=== PATIENT | male | born 1945 | race African-American/Black ===

== ENCOUNTER 2022-03-22 16:20 | Inpatient (IN) | payer MEDICARE, OTHER ==
[~2022-03-22] VITALS: Ht 177.8 cm; Wt 70.3 kg
[2022-03-22 18:38] LABS: BASOPHILS % 0.6 % (0.0-1.0); EOSINOPHILS % 0.6 % (0.0-6.0); HEMATOCRIT 33.6 % (38.2-49.6); HEMOGLOBIN 10.7 g/dL (14.0-18.0); LYMPHOCYTES # (AUTO) 1.8 (1.0-3.2); LYMPHOCYTES % 27.2 % (18.0-39.1); MEAN CORPUSCULAR HGB CONC 31.8 g/dL (31-35); MEAN CORPUSCULAR VOLUME 94.1 fL (81-99); MONOCYTES # (AUTO) 0.4 (0.2-0.8); MONOCYTES % 5.8 % (4.4-11.3); NEUTROPHILS # (AUTO) 4.3 (2.1-6.9); NEUTROPHILS % 65.2 % (38.7-80.0); PLATELET COUNT 175 x10e3/uL (140-360); RED BLOOD COUNT 3.57 x10e6/uL (4.3-5.7); RED CELL DISTRIBUTION WIDTH 12.2 % (11.7-14.4)
[2022-03-22] MEDS ORDERED: Vancomycin IV 1 GM in SODIUM CHLORIDE 0.9% 250ML 250 ML IV STA (18:41)
[2022-03-22 18:48] LABS: INR 0.98; PROTHROMBIN TIME 13.9 seconds (11.9-14.5)
[2022-03-22 18:57] LABS: ANION GAP 18.7 mmol/L (8-16); CALCIUM 10.2 mg/dL (8.4-10.2); CREATININE, SERUM 2.72 mg/dL (0.72-1.25); POTASSIUM 5.7 mmol/L (3.5-5.1)
[2022-03-22] MEDS ORDERED: HEPARIN SOD (PORCINE) 1000 UNIT/ML SDV IV ONE (19:00)
[2022-03-22] MEDS ORDERED: TRAMADOL HCL 50 MG TAB PO PRN (19:00)
[2022-03-22] MEDS: SODIUM CHLORIDE 0.9% 1000ML 1,000 ML IV SCH (20:07)
[2022-03-22] MEDS: HEPARIN 25,000 UNIT 1,300 UNIT in DEXTROSE 5% 250ML 250 ML IV SCH (20:13)
[2022-03-22] MEDS ORDERED: HEPARIN 25,000 UNIT DRIP IV ONE (20:14)
[2022-03-22] MEDS ORDERED: SOD POLYSTYRENE SULFONATE SUSP 15 GM/60 ML BTL PR ONE (22:45)
[2022-03-23] VITALS (9 sets, daily range): BP systolic 109–132; BP diastolic 41–54
[2022-03-23] MEDS ORDERED: DEXTROSE 50% SYRINGE 50 ML IV PRN ×2 (01:15→02:00)
[2022-03-23] MEDS: SODIUM CHLORIDE 0.9% 1000ML 1,000 ML IV SCH ×2 (06:38→15:00)
[2022-03-23] MEDS: INSULIN LISPRO 100 UNIT/1 ML 3ML VIAL SQ SCH ×4 (07:30→21:00)
[2022-03-23] MEDS ORDERED: INSULIN LISPRO 100 UNIT/1 ML 3ML VIAL SQ SCH (07:30)
[2022-03-23 08:11] LABS: BASOPHILS % 0.6 % (0.0-1.0); EOSINOPHILS # (AUTO) 0.1 (0.0-0.4); EOSINOPHILS % 1.5 % (0.0-6.0); HEMATOCRIT 27.8 % (38.2-49.6); HEMOGLOBIN 9.1 g/dL (14.0-18.0); LYMPHOCYTES # (AUTO) 1.6 (1.0-3.2); LYMPHOCYTES % 31.1 % (18.0-39.1); MEAN CORPUSCULAR HGB CONC 32.7 g/dL (31-35); MEAN CORPUSCULAR VOLUME 91.7 fL (81-99); MONOCYTES # (AUTO) 0.4 (0.2-0.8); MONOCYTES % 6.8 % (4.4-11.3); NEUTROPHILS # (AUTO) 3.1 (2.1-6.9); NEUTROPHILS % 59.4 % (38.7-80.0); PLATELET COUNT 139 x10e3/uL (140-360); RED BLOOD COUNT 3.03 x10e6/uL (4.3-5.7); RED CELL DISTRIBUTION WIDTH 12.2 % (11.7-14.4)
[2022-03-23 09:09] LABS: ANION GAP 15.3 mmol/L (8-16); CALCIUM 8.9 mg/dL (8.4-10.2); CREATININE, SERUM 1.78 mg/dL (0.72-1.25); POTASSIUM 5.3 mmol/L (3.5-5.1)
[2022-03-23 10:09] LABS: CHOL/HDL RATIO 5.1 (3.9-4.7)
[2022-03-23 10:29] LABS: THYROID STIMULATING HORMONE 1.815 uIU/mL (0.350-4.940)
[2022-03-23] MEDS ORDERED: INSULIN REGULAR, HUMAN 100 UNIT/1 ML IV ONE (15:30)
[2022-03-23] MEDS ORDERED: DEXTROSE 50% SYRINGE 50 ML IV ONE (15:30)
[2022-03-23] MEDS: SODIUM BICARBONATE 8.4% 150 ML in DEXTROSE 5% 1,000 ML IV SCH (16:56)
[2022-03-23] MEDS ORDERED: Vancomycin IV 1 GM in SODIUM CHLORIDE 0.9% 250ML 250 ML IV SCH (21:00)
[2022-03-23] MEDS: Vancomycin IV 1 GM in SODIUM CHLORIDE 0.9% 250ML 250 ML IV SCH (21:17)
[2022-03-24] VITALS (8 sets, daily range): BP systolic 109–145; BP diastolic 47–63
[2022-03-24] MEDS: ASPIRIN 81 MG CHEW TAB PO SCH ×2 (00:51→08:28)
[2022-03-24] MEDS: HEPARIN 25,000 UNIT 1,300 UNIT in DEXTROSE 5% 250ML 250 ML IV SCH (00:54)
[2022-03-24] MEDS: SODIUM CHLORIDE 0.9% 1000ML 1,000 ML IV SCH ×2 (01:00→11:00)
[2022-03-24 07:22] LABS: BASOPHILS % 0.9 % (0.0-1.0); EOSINOPHILS # (AUTO) 0.1 (0.0-0.4); EOSINOPHILS % 1.8 % (0.0-6.0); HEMATOCRIT 27.2 % (38.2-49.6); HEMOGLOBIN 8.6 g/dL (14.0-18.0); LYMPHOCYTES # (AUTO) 1.9 (1.0-3.2); LYMPHOCYTES % 43.7 % (18.0-39.1); MEAN CORPUSCULAR HGB CONC 31.6 g/dL (31-35); MEAN CORPUSCULAR VOLUME 94.8 fL (81-99); MONOCYTES # (AUTO) 0.3 (0.2-0.8); MONOCYTES % 7.8 % (4.4-11.3); NEUTROPHILS % 45.3 % (38.7-80.0); PLATELET COUNT 139 x10e3/uL (140-360); RED BLOOD COUNT 2.87 x10e6/uL (4.3-5.7); RED CELL DISTRIBUTION WIDTH 12.1 % (11.7-14.4)
[2022-03-24] MEDS: INSULIN LISPRO 100 UNIT/1 ML 3ML VIAL SQ SCH ×4 (07:30→20:16)
[2022-03-24] MEDS ORDERED: ATORVASTATIN 20 MG TAB ONE (07:44)
[2022-03-24] MEDS: SODIUM BICARBONATE 8.4% 150 ML in DEXTROSE 5% 1,000 ML IV SCH (08:27)
[2022-03-24] MEDS: ATORVASTATIN 40 MG TAB PO SCH (08:29)
[2022-03-24] MEDS: MUPIROCIN 2% OINT 22 GM TUBE TOP SCH (09:00)
[2022-03-24 19:14] LABS: ANION GAP 12.9 mmol/L (8-16); CALCIUM 8.6 mg/dL (8.4-10.2); CREATININE, SERUM 1.08 mg/dL (0.72-1.25)
[2022-03-24 19:19] LABS: POTASSIUM 3.9 mmol/L (3.5-5.1)
[2022-03-24] MEDS: HYDROCODONE/APAP 5MG-325MG TAB PO PRN (19:30)
[2022-03-24] MEDS: Vancomycin IV 1 GM in SODIUM CHLORIDE 0.9% 250ML 250 ML IV SCH (21:15)
[2022-03-25] VITALS (8 sets, daily range): BP systolic 122–151; BP diastolic 48–82
[2022-03-25] MEDS: HYDROCODONE/APAP 5MG-325MG TAB PO PRN ×2 (00:50→12:31)
[2022-03-25 06:19] LABS: EOSINOPHILS # (AUTO) 0.1 (0.0-0.4); EOSINOPHILS % 2.3 % (0.0-6.0); HEMATOCRIT 25.2 % (38.2-49.6); LYMPHOCYTES # (AUTO) 1.7 (1.0-3.2); LYMPHOCYTES % 43.1 % (18.0-39.1); MEAN CORPUSCULAR HEMOGLOBIN 29.7 pg (28-32); MEAN CORPUSCULAR HGB CONC 31.7 g/dL (31-35); MEAN CORPUSCULAR VOLUME 93.7 fL (81-99); MONOCYTES # (AUTO) 0.3 (0.2-0.8); MONOCYTES % 7.6 % (4.4-11.3); NEUTROPHILS # (AUTO) 1.8 (2.1-6.9); NEUTROPHILS % 45.7 % (38.7-80.0); PLATELET COUNT 128 x10e3/uL (140-360); RED BLOOD COUNT 2.69 x10e6/uL (4.3-5.7); RED CELL DISTRIBUTION WIDTH 11.8 % (11.7-14.4)
[2022-03-25 06:40] LABS: CALCIUM 8.3 mg/dL (8.4-10.2); CREATININE, SERUM 0.9 mg/dL (0.72-1.25)
[2022-03-25] MEDS: INSULIN LISPRO 100 UNIT/1 ML 3ML VIAL SQ SCH ×4 (07:30→21:20)
[2022-03-25] MEDS: HEPARIN 25,000 UNIT 1,300 UNIT in DEXTROSE 5% 250ML 250 ML IV SCH (08:00)
[2022-03-25] MEDS: ASPIRIN 81 MG CHEW TAB PO SCH (08:30)
[2022-03-25] MEDS: ATORVASTATIN 40 MG TAB PO SCH (08:30)
[2022-03-25] MEDS: MUPIROCIN 2% OINT 22 GM TUBE TOP SCH (08:31)
[2022-03-25] MEDS: SODIUM BICARBONATE 650 MG TAB PO SCH (16:25)
[2022-03-25] MEDS: Vancomycin IV 1 GM in SODIUM CHLORIDE 0.9% 250ML 250 ML IV SCH (21:20)
[2022-03-26] VITALS (7 sets, daily range): BP systolic 115–139; BP diastolic 45–59
[2022-03-26 05:32] LABS: BASOPHILS % 0.7 % (0.0-1.0); EOSINOPHILS # (AUTO) 0.2 (0.0-0.4); EOSINOPHILS % 3.3 % (0.0-6.0); HEMATOCRIT 23.5 % (38.2-49.6); HEMOGLOBIN 7.7 g/dL (14.0-18.0); LYMPHOCYTES # (AUTO) 1.7 (1.0-3.2); LYMPHOCYTES % 38.8 % (18.0-39.1); MEAN CORPUSCULAR HGB CONC 32.8 g/dL (31-35); MEAN CORPUSCULAR VOLUME 91.4 fL (81-99); MONOCYTES # (AUTO) 0.4 (0.2-0.8); MONOCYTES % 8.2 % (4.4-11.3); NEUTROPHILS # (AUTO) 2.2 (2.1-6.9); NEUTROPHILS % 48.8 % (38.7-80.0); PLATELET COUNT 122 x10e3/uL (140-360); RED BLOOD COUNT 2.57 x10e6/uL (4.3-5.7); RED CELL DISTRIBUTION WIDTH 11.9 % (11.7-14.4)
[2022-03-26] MEDS: HYDROCODONE/APAP 5MG-325MG TAB PO PRN (05:46)
[2022-03-26 06:04] LABS: ANION GAP 10.9 mmol/L (8-16); CALCIUM 8.7 mg/dL (8.4-10.2); CREATININE, SERUM 0.89 mg/dL (0.72-1.25); POTASSIUM 3.9 mmol/L (3.5-5.1)
[2022-03-26] MEDS: INSULIN LISPRO 100 UNIT/1 ML 3ML VIAL SQ SCH ×4 (07:30→21:00)
[2022-03-26] MEDS: ATORVASTATIN 40 MG TAB PO SCH (08:41)
[2022-03-26] MEDS: ASPIRIN 81 MG CHEW TAB PO SCH (08:41)
[2022-03-26] MEDS: SODIUM BICARBONATE 650 MG TAB PO SCH ×2 (08:41→16:16)
[2022-03-26] MEDS: MUPIROCIN 2% OINT 22 GM TUBE TOP SCH (09:00)
[2022-03-26] MEDS: SODIUM CHLORIDE 0.45% 1,000 ML IV SCH ×2 (10:00→21:31)
[2022-03-26] MEDS: ACETYLCYSTEINE 20% INHAL SOLN 30 ML VIAL PO SCH ×2 (10:30→21:31)
[2022-03-26] MEDS ORDERED: SODIUM CHLORIDE 0.9% 100 ML ONE (11:10)
[2022-03-26] MEDS ORDERED: IOPAMIDOL 370 MG/ML 100 ML INFUS..BTL INJ ONE (11:10)
[2022-03-26] MEDS ORDERED: ENOXAPARIN SOD INJ 40 MG/0.4 ML SYR SC SCH (17:00)
[2022-03-26] MEDS ORDERED: SODIUM CHLORIDE 0.9% 1000ML 1,000 ML IV SCH (17:45)
[2022-03-26] MEDS: Vancomycin IV 1 GM in SODIUM CHLORIDE 0.9% 250ML 250 ML IV SCH (21:31)
[2022-03-26] MEDS: COLLAGENASE 5 GM TUBE TOP SCH (21:36)
[2022-03-27] VITALS (9 sets, daily range): BP systolic 107–133; BP diastolic 42–78
[2022-03-27] MEDS: SODIUM CHLORIDE 0.45% 1,000 ML IV SCH (05:55)
[2022-03-27] MEDS: ACETYLCYSTEINE 20% INHAL SOLN 30 ML VIAL PO SCH ×2 (07:00→19:00)
[2022-03-27 07:02] LABS: BASOPHILS % 0.6 % (0.0-1.0); EOSINOPHILS # (AUTO) 0.2 (0.0-0.4); EOSINOPHILS % 3.4 % (0.0-6.0); HEMATOCRIT 23.5 % (38.2-49.6); HEMOGLOBIN 7.6 g/dL (14.0-18.0); LYMPHOCYTES # (AUTO) 1.4 (1.0-3.2); LYMPHOCYTES % 29.8 % (18.0-39.1); MEAN CORPUSCULAR HEMOGLOBIN 29.6 pg (28-32); MEAN CORPUSCULAR HGB CONC 32.3 g/dL (31-35); MEAN CORPUSCULAR VOLUME 91.4 fL (81-99); MONOCYTES # (AUTO) 0.4 (0.2-0.8); MONOCYTES % 7.8 % (4.4-11.3); NEUTROPHILS # (AUTO) 2.8 (2.1-6.9); NEUTROPHILS % 58.2 % (38.7-80.0); PLATELET COUNT 125 x10e3/uL (140-360); RED BLOOD COUNT 2.57 x10e6/uL (4.3-5.7); RED CELL DISTRIBUTION WIDTH 11.7 % (11.7-14.4)
[2022-03-27 07:16] LABS: ANION GAP 10.6 mmol/L (8-16); CALCIUM 8.8 mg/dL (8.4-10.2); CREATININE, SERUM 0.83 mg/dL (0.72-1.25); POTASSIUM 3.6 mmol/L (3.5-5.1)
[2022-03-27] MEDS: INSULIN LISPRO 100 UNIT/1 ML 3ML VIAL SQ SCH ×4 (07:30→21:00)
[2022-03-27 07:54] LABS: INR 0.91; PROTHROMBIN TIME 13.1 seconds (11.9-14.5)
[2022-03-27 07:55] LABS: PARTIAL THROMBOPLASTIN TIME 28.4 seconds (23.8-35.5)
[2022-03-27] MEDS: SODIUM BICARBONATE 650 MG TAB PO SCH (08:18)
[2022-03-27] MEDS: ATORVASTATIN 40 MG TAB PO SCH (08:18)
[2022-03-27] MEDS: ASPIRIN 81 MG CHEW TAB PO SCH (08:18)
[2022-03-27] MEDS: COLLAGENASE 5 GM TUBE TOP SCH (08:19)
[2022-03-27] MEDS: MUPIROCIN 2% OINT 22 GM TUBE TOP SCH (08:19)
[2022-03-27] MEDS ORDERED: FENTANYL CITRATE/PF 100MCG/2 ML INJ ONE (09:39)
[2022-03-27] MEDS ORDERED: MIDAZOLAM HCL 2 MG/2 ML VIAL ONE (09:39)
[2022-03-27] MEDS ORDERED: HEPARIN SOD (PORCINE) 1000 UNIT/ML 30ML ONE (09:39)
[2022-03-27] MEDS ORDERED: LIDOCAINE HCL 2% LOCAL 20 ML VIAL ONE (09:40)
[2022-03-27] MEDS ORDERED: HEPARIN SOD/SOD CHLORIDE 2,000 ML ONE (09:40)
[2022-03-27] MEDS ORDERED: NITROGLYCERIN/D5W 200 MCG/ML 250 ML ONE (09:41)
[2022-03-27] MEDS ORDERED: SODIUM CHLORIDE 0.9% 1000ML 1,000 ML ONE (09:41)
[2022-03-27] MEDS ORDERED: IOPAMIDOL 300MG/ML 100 ML INFUS..BTL IV ONE (09:41)
[2022-03-27] MEDS ORDERED: ASPIRIN 325 MG TAB ONE (11:25)
[2022-03-27] MEDS ORDERED: CLOPIDOGREL BISULFATE 75 MG TAB ONE (11:25)
[2022-03-27] MEDS: SODIUM CHLORIDE 0.9% 1000ML 1,000 ML IV SCH (12:00)
[2022-03-27] MEDS ORDERED: HYDROCODONE/APAP 5MG-325MG TAB ONE (12:53)
[2022-03-27] MEDS ORDERED: FAMOTIDINE 20 MG/2 ML VIAL IV ONE (13:19)
[2022-03-27] MEDS: HYDROCODONE/APAP 5MG-325MG TAB PO PRN (16:45)
[2022-03-27] MEDS: Vancomycin IV 1 GM in SODIUM CHLORIDE 0.9% 250ML 250 ML IV SCH (21:00)
[2022-03-28] VITALS (7 sets, daily range): BP systolic 114–149; BP diastolic 42–62
[2022-03-28] MEDS: SODIUM CHLORIDE 0.9% 1000ML 1,000 ML IV SCH ×3 (00:15→18:00)
[2022-03-28] MEDS: ACETYLCYSTEINE 20% INHAL SOLN 30 ML VIAL PO SCH (07:00)
[2022-03-28 07:23] LABS: BASOPHILS % 0.6 % (0.0-1.0); EOSINOPHILS # (AUTO) 0.2 (0.0-0.4); EOSINOPHILS % 3.2 % (0.0-6.0); HEMATOCRIT 22.3 % (38.2-49.6); HEMOGLOBIN 7.2 g/dL (14.0-18.0); LYMPHOCYTES # (AUTO) 1.2 (1.0-3.2); LYMPHOCYTES % 23.2 % (18.0-39.1); MEAN CORPUSCULAR HEMOGLOBIN 29.8 pg (28-32); MEAN CORPUSCULAR HGB CONC 32.3 g/dL (31-35); MEAN CORPUSCULAR VOLUME 92.1 fL (81-99); MONOCYTES # (AUTO) 0.4 (0.2-0.8); MONOCYTES % 7.4 % (4.4-11.3); NEUTROPHILS # (AUTO) 3.4 (2.1-6.9); NEUTROPHILS % 65.4 % (38.7-80.0); PLATELET COUNT 112 x10e3/uL (140-360); RED BLOOD COUNT 2.42 x10e6/uL (4.3-5.7); RED CELL DISTRIBUTION WIDTH 11.9 % (11.7-14.4)
[2022-03-28] MEDS: INSULIN LISPRO 100 UNIT/1 ML 3ML VIAL SQ SCH ×4 (07:30→21:00)
[2022-03-28 07:55] LABS: ANION GAP 11.4 mmol/L (8-16); CALCIUM 8.2 mg/dL (8.4-10.2); CREATININE, SERUM 0.8 mg/dL (0.72-1.25); POTASSIUM 3.4 mmol/L (3.5-5.1)
[2022-03-28] MEDS: COLLAGENASE 5 GM TUBE TOP SCH (09:00)
[2022-03-28] MEDS: MUPIROCIN 2% OINT 22 GM TUBE TOP SCH (09:00)
[2022-03-28] MEDS: ASPIRIN 81 MG CHEW TAB PO SCH (09:02)
[2022-03-28] MEDS: CLOPIDOGREL BISULFATE 75 MG TAB PO SCH (09:02)
[2022-03-28] MEDS: ATORVASTATIN 40 MG TAB PO SCH (09:02)
[2022-03-28] MEDS ORDERED: ACETAMINOPHEN 325 MG TAB PO STA (09:22)
[2022-03-28] MEDS ORDERED: SODIUM CHLORIDE 0.9% 250ML 250 ML IV ONE (09:30)
[2022-03-28] MEDS: HYDROCODONE/APAP 5MG-325MG TAB PO PRN (14:13)
[2022-03-28] MEDS: Vancomycin IV 1 GM in SODIUM CHLORIDE 0.9% 250ML 250 ML IV SCH (20:00)
[2022-03-29] VITALS (9 sets, daily range): BP systolic 109–149; BP diastolic 52–87
[2022-03-29] MEDS: Vancomycin IV 1 GM in SODIUM CHLORIDE 0.9% 250ML 250 ML IV SCH ×2 (00:20→20:00)
[2022-03-29] MEDS: SODIUM CHLORIDE 0.9% 1000ML 1,000 ML IV SCH (04:00)
[2022-03-29 06:44] LABS: BASOPHILS % 0.4 % (0.0-1.0); EOSINOPHILS # (AUTO) 0.1 (0.0-0.4); EOSINOPHILS % 2.1 % (0.0-6.0); HEMATOCRIT 21.1 % (38.2-49.6); LYMPHOCYTES # (AUTO) 1.2 (1.0-3.2); LYMPHOCYTES % 17.4 % (18.0-39.1); MEAN CORPUSCULAR HEMOGLOBIN 29.7 pg (28-32); MEAN CORPUSCULAR HGB CONC 32.7 g/dL (31-35); MEAN CORPUSCULAR VOLUME 90.9 fL (81-99); MONOCYTES # (AUTO) 0.4 (0.2-0.8); MONOCYTES % 6.6 % (4.4-11.3); NEUTROPHILS # (AUTO) 4.9 (2.1-6.9); NEUTROPHILS % 73.2 % (38.7-80.0); PLATELET COUNT 127 x10e3/uL (140-360); RED BLOOD COUNT 2.32 x10e6/uL (4.3-5.7); RED CELL DISTRIBUTION WIDTH 12.1 % (11.7-14.4)
[2022-03-29] MEDS: ACETYLCYSTEINE 20% INHAL SOLN 30 ML VIAL PO SCH ×2 (07:00→19:00)
[2022-03-29 07:12] LABS: ANION GAP 10.2 mmol/L (8-16); CALCIUM 8.7 mg/dL (8.4-10.2); CREATININE, SERUM 0.74 mg/dL (0.72-1.25); HEMOGLOBIN 6.9 g/dL (14.0-18.0); POTASSIUM 3.2 mmol/L (3.5-5.1)
[2022-03-29] MEDS: INSULIN LISPRO 100 UNIT/1 ML 3ML VIAL SQ SCH ×4 (07:30→21:00)
[2022-03-29] MEDS: ASPIRIN 81 MG CHEW TAB PO SCH (08:41)
[2022-03-29] MEDS: ATORVASTATIN 40 MG TAB PO SCH (08:42)
[2022-03-29] MEDS: CLOPIDOGREL BISULFATE 75 MG TAB PO SCH (08:42)
[2022-03-29] MEDS: MUPIROCIN 2% OINT 22 GM TUBE TOP SCH (08:43)
[2022-03-29] MEDS ORDERED: TRAMADOL HCL 50 MG TAB PO PRN (08:45)
[2022-03-29] MEDS ORDERED: POTASSIUM CHLORIDE 10MEQ EA PO ONE (09:15)
[2022-03-29] MEDS ORDERED: SODIUM CHLORIDE 0.9% 250ML 250 ML ONE (09:37)
[2022-03-29] MEDS: FUROSEMIDE INJ 10 MG/ML 2 ML VIAL IV PRN ×2 (12:42→15:51)
[2022-03-29] MEDS: COLLAGENASE 5 GM TUBE TOP SCH (21:00)
[2022-03-30] VITALS (7 sets, daily range): BP systolic 119–156; BP diastolic 56–76
[2022-03-30] MEDS: HYDROCODONE/APAP 5MG-325MG TAB PO PRN ×3 (00:20→13:12)
[2022-03-30] MEDS: Vancomycin IV 1 GM in SODIUM CHLORIDE 0.9% 250ML 250 ML IV SCH ×2 (00:29→20:42)
[2022-03-30] MEDS: ACETYLCYSTEINE 20% INHAL SOLN 30 ML VIAL PO SCH ×2 (07:00→19:00)
[2022-03-30] MEDS: INSULIN LISPRO 100 UNIT/1 ML 3ML VIAL SQ SCH ×4 (07:30→20:49)
[2022-03-30] MEDS: ATORVASTATIN 40 MG TAB PO SCH (08:36)
[2022-03-30] MEDS: CLOPIDOGREL BISULFATE 75 MG TAB PO SCH (08:37)
[2022-03-30] MEDS: ASPIRIN 81 MG CHEW TAB PO SCH (08:37)
[2022-03-30] MEDS: [UNRECOGNIZED DRUG - OTHER] PO SCH (08:38)
[2022-03-30] MEDS: MUPIROCIN 2% OINT 22 GM TUBE TOP SCH (09:00)
[2022-03-30 09:24] LABS: BASOPHILS % 0.4 % (0.0-1.0); EOSINOPHILS # (AUTO) 0.2 (0.0-0.4); EOSINOPHILS % 2.7 % (0.0-6.0); HEMATOCRIT 29.4 % (38.2-49.6); HEMOGLOBIN 9.7 g/dL (14.0-18.0); LYMPHOCYTES # (AUTO) 1.9 (1.0-3.2); LYMPHOCYTES % 21.5 % (18.0-39.1); MEAN CORPUSCULAR HEMOGLOBIN 30.2 pg (28-32); MEAN CORPUSCULAR VOLUME 91.6 fL (81-99); MONOCYTES # (AUTO) 0.7 (0.2-0.8); MONOCYTES % 7.8 % (4.4-11.3); NEUTROPHILS # (AUTO) 6.1 (2.1-6.9); NEUTROPHILS % 67.4 % (38.7-80.0); PLATELET COUNT 134 x10e3/uL (140-360); RED BLOOD COUNT 3.21 x10e6/uL (4.3-5.7); RED CELL DISTRIBUTION WIDTH 13.5 % (11.7-14.4)
[2022-03-30] MEDS: COLLAGENASE 5 GM TUBE TOP SCH (20:43)
[2022-03-31] VITALS (7 sets, daily range): BP systolic 133–156; BP diastolic 48–80
[2022-03-31] MEDS: HYDROCODONE/APAP 5MG-325MG TAB PO PRN ×2 (02:29→20:58)
[2022-03-31] MEDS ORDERED: ACETAMINOPHEN 325 MG TAB ONE (05:52)
[2022-03-31] MEDS: ACETYLCYSTEINE 20% INHAL SOLN 30 ML VIAL PO SCH ×2 (07:00→19:00)
[2022-03-31] MEDS: INSULIN LISPRO 100 UNIT/1 ML 3ML VIAL SQ SCH ×4 (07:30→21:00)
[2022-03-31] MEDS: [UNRECOGNIZED DRUG - OTHER] PO SCH (09:00)
[2022-03-31] MEDS ORDERED: ZIPRASIDONE 20 MG VIAL IM PRN (10:45)
[2022-03-31] MEDS: QUETIAPINE FUMARATE 25 MG TAB PO SCH ×2 (12:30→18:26)
[2022-03-31] MEDS: MUPIROCIN 2% OINT 22 GM TUBE TOP SCH (12:30)
[2022-03-31] MEDS: SERTRALINE HCL 100 MG TAB PO SCH (12:30)
[2022-03-31] MEDS: ASPIRIN 81 MG CHEW TAB PO SCH (12:30)
[2022-03-31] MEDS: CLOPIDOGREL BISULFATE 75 MG TAB PO SCH (12:30)
[2022-03-31] MEDS: ATORVASTATIN 40 MG TAB PO SCH ×2 (12:30→20:55)
[2022-03-31] MEDS ORDERED: SERTRALINE HCL100 MG PO (12:36)
[2022-03-31] MEDS: COLLAGENASE 5 GM TUBE TOP SCH (21:00)
[2022-03-31] MEDS: TRAZODONE HCL 50 MG TAB PO SCH (21:00)
[2022-03-31] MEDS: Vancomycin IV 1 GM in SODIUM CHLORIDE 0.9% 250ML 250 ML IV SCH (21:34)
[2022-04-01] VITALS (8 sets, daily range): BP systolic 137–146; BP diastolic 51–75
[2022-04-01] MEDS: HYDROCODONE/APAP 5MG-325MG TAB PO PRN (05:44)
[2022-04-01] MEDS: ACETYLCYSTEINE 20% INHAL SOLN 30 ML VIAL PO SCH ×2 (07:00→19:00)
[2022-04-01] MEDS: INSULIN LISPRO 100 UNIT/1 ML 3ML VIAL SQ SCH ×4 (07:30→21:38)
[2022-04-01] MEDS: QUETIAPINE FUMARATE 25 MG TAB PO SCH ×2 (10:31→17:24)
[2022-04-01] MEDS: SERTRALINE HCL 100 MG TAB PO SCH (10:31)
[2022-04-01] MEDS: ATORVASTATIN 40 MG TAB PO SCH ×2 (10:31→21:21)
[2022-04-01] MEDS: [UNRECOGNIZED DRUG - OTHER] PO SCH (10:32)
[2022-04-01] MEDS: MUPIROCIN 2% OINT 22 GM TUBE TOP SCH (10:32)
[2022-04-01] MEDS: ASPIRIN 81 MG CHEW TAB PO SCH (10:32)
[2022-04-01] MEDS: TRAZODONE HCL 50 MG TAB PO SCH (21:15)
[2022-04-01] MEDS: Vancomycin IV 1 GM in SODIUM CHLORIDE 0.9% 250ML 250 ML IV SCH (21:22)
[2022-04-01] MEDS: COLLAGENASE 5 GM TUBE TOP SCH (21:22)
[2022-04-02] VITALS (7 sets, daily range): BP systolic 122–150; BP diastolic 57–65
[2022-04-02] MEDS: HYDROCODONE/APAP 5MG-325MG TAB PO PRN ×4 (00:06→14:40)
[2022-04-02] MEDS: INSULIN LISPRO 100 UNIT/1 ML 3ML VIAL SQ SCH ×4 (07:30→21:00)
[2022-04-02] MEDS: SERTRALINE HCL 100 MG TAB PO SCH (08:25)
[2022-04-02] MEDS: QUETIAPINE FUMARATE 25 MG TAB PO SCH ×2 (08:26→17:37)
[2022-04-02] MEDS: ASPIRIN 81 MG CHEW TAB PO SCH (08:26)
[2022-04-02] MEDS: ACETYLCYSTEINE 20% INHAL SOLN 30 ML VIAL PO SCH ×2 (08:26→21:37)
[2022-04-02] MEDS: [UNRECOGNIZED DRUG - OTHER] PO SCH (08:26)
[2022-04-02] MEDS: ATORVASTATIN 40 MG TAB PO SCH (08:26)
[2022-04-02] MEDS: MUPIROCIN 2% OINT 22 GM TUBE TOP SCH (08:28)
[2022-04-02] MEDS: COLLAGENASE 5 GM TUBE TOP SCH (21:37)
[2022-04-02] MEDS: TRAZODONE HCL 50 MG TAB PO SCH (21:37)
[2022-04-03] VITALS (8 sets, daily range): BP systolic 126–172; BP diastolic 50–76
[2022-04-03] MEDS: HYDROCODONE/APAP 5MG-325MG TAB PO PRN ×4 (06:29→22:13)
[2022-04-03] MEDS: ACETYLCYSTEINE 20% INHAL SOLN 30 ML VIAL PO SCH ×2 (07:00→19:00)
[2022-04-03] MEDS: INSULIN LISPRO 100 UNIT/1 ML 3ML VIAL SQ SCH ×4 (07:30→21:00)
[2022-04-03] MEDS: MUPIROCIN 2% OINT 22 GM TUBE TOP SCH (08:00)
[2022-04-03] MEDS: QUETIAPINE FUMARATE 25 MG TAB PO SCH ×2 (09:00→16:24)
[2022-04-03] MEDS: [UNRECOGNIZED DRUG - OTHER] PO SCH (09:00)
[2022-04-03] MEDS: ASPIRIN 81 MG CHEW TAB PO SCH (09:00)
[2022-04-03] MEDS: ATORVASTATIN 40 MG TAB PO SCH (09:00)
[2022-04-03] MEDS ORDERED: MIDAZOLAM HCL 2 MG/2 ML VIAL ONE (09:53)
[2022-04-03] MEDS ORDERED: FENTANYL CITRATE/PF 100MCG/2 ML INJ ONE (09:53)
[2022-04-03] MEDS ORDERED: KETAMINE HCL INJ 50 MG/ML 10 ML VIAL ONE (09:53)
[2022-04-03] MEDS ORDERED: POVIDONE IODINE 0.05% 0.05 % ML PO ONE (10:32)
[2022-04-03] MEDS ORDERED: DEXAMETHASONE SOD PHOS INJ 4 MG/ML SDV ONE (10:32)
[2022-04-03] MEDS ORDERED: ONDANSETRON HCL INJ 2MG/ML 2ML 2 MG/ML VIAL ONE (10:32)
[2022-04-03] MEDS ORDERED: PROPOFOL IV EMULSION 10 MG/ML 20 ML VIAL ONE (10:32)
[2022-04-03] MEDS ORDERED: SEVOFLURANE INHAL SOLN 250 ML PEN BTL ONE (10:32)
[2022-04-03] MEDS ORDERED: LIDOCAINE HCL 2% LOCAL INJ 5 ML SDV VIAL INJ ONE (10:32)
[2022-04-03] MEDS ORDERED: HYDROCODONE/APAP 5MG-325MG TAB PO PRN (12:30)
[2022-04-03] MEDS: SERTRALINE HCL 100 MG TAB PO SCH (13:39)
[2022-04-03] MEDS: TRAZODONE HCL 50 MG TAB PO SCH (21:15)
[2022-04-03] MEDS: COLLAGENASE 5 GM TUBE TOP SCH (21:24)
[2022-04-04] VITALS (9 sets, daily range): BP systolic 104–141; BP diastolic 44–58
[2022-04-04] MEDS: HYDROCODONE/APAP 5MG-325MG TAB PO PRN ×5 (01:58→21:06)
[2022-04-04] MEDS: INSULIN LISPRO 100 UNIT/1 ML 3ML VIAL SQ SCH ×4 (07:30→20:51)
[2022-04-04] MEDS: ACETYLCYSTEINE 20% INHAL SOLN 30 ML VIAL PO SCH ×2 (08:55→19:00)
[2022-04-04] MEDS: SERTRALINE HCL 100 MG TAB PO SCH (08:56)
[2022-04-04] MEDS: [UNRECOGNIZED DRUG - OTHER] PO SCH (08:56)
[2022-04-04] MEDS: ASPIRIN 81 MG CHEW TAB PO SCH (08:56)
[2022-04-04] MEDS: MUPIROCIN 2% OINT 22 GM TUBE TOP SCH (08:56)
[2022-04-04] MEDS: ATORVASTATIN 40 MG TAB PO SCH (08:56)
[2022-04-04] MEDS: QUETIAPINE FUMARATE 25 MG TAB PO SCH ×2 (08:56→17:11)
[2022-04-04 10:16] LABS: BASOPHILS % 0.4 % (0.0-1.0); EOSINOPHILS % 0.1 % (0.0-6.0); HEMOGLOBIN 8.7 g/dL (14.0-18.0); LYMPHOCYTES # (AUTO) 1.2 (1.0-3.2); LYMPHOCYTES % 15.8 % (18.0-39.1); MEAN CORPUSCULAR HEMOGLOBIN 30.2 pg (28-32); MEAN CORPUSCULAR HGB CONC 31.1 g/dL (31-35); MEAN CORPUSCULAR VOLUME 97.2 fL (81-99); MONOCYTES # (AUTO) 0.7 (0.2-0.8); MONOCYTES % 9.7 % (4.4-11.3); NEUTROPHILS # (AUTO) 5.5 (2.1-6.9); NEUTROPHILS % 72.7 % (38.7-80.0); PLATELET COUNT 164 x10e3/uL (140-360); RED BLOOD COUNT 2.88 x10e6/uL (4.3-5.7); RED CELL DISTRIBUTION WIDTH 13.8 % (11.7-14.4)
[2022-04-04 10:34] LABS: ANION GAP 9.3 mmol/L (8-16); CALCIUM 8.3 mg/dL (8.4-10.2); CREATININE, SERUM 0.83 mg/dL (0.72-1.25); POTASSIUM 3.3 mmol/L (3.5-5.1)
[2022-04-04] MEDS: COLLAGENASE 5 GM TUBE TOP SCH (20:52)
[2022-04-04] MEDS: TRAZODONE HCL 50 MG TAB PO SCH (21:00)
[2022-04-05] VITALS: BP 150/64
[2022-04-05] MEDS: HYDROCODONE/APAP 5MG-325MG TAB PO PRN ×2 (01:33→05:17)
[2022-04-05 04:00] VITALS: BP 158/66
[2022-04-05 05:54] LABS: BASOPHILS % 0.4 % (0.0-1.0); EOSINOPHILS # (AUTO) 0.1 (0.0-0.4); EOSINOPHILS % 0.6 % (0.0-6.0); HEMATOCRIT 28.1 % (38.2-49.6); HEMOGLOBIN 8.9 g/dL (14.0-18.0); LYMPHOCYTES # (AUTO) 1.2 (1.0-3.2); LYMPHOCYTES % 14.4 % (18.0-39.1); MEAN CORPUSCULAR HEMOGLOBIN 30.3 pg (28-32); MEAN CORPUSCULAR HGB CONC 31.7 g/dL (31-35); MEAN CORPUSCULAR VOLUME 95.6 fL (81-99); MONOCYTES # (AUTO) 0.8 (0.2-0.8); MONOCYTES % 9.9 % (4.4-11.3); NEUTROPHILS # (AUTO) 6.2 (2.1-6.9); NEUTROPHILS % 74.3 % (38.7-80.0); PLATELET COUNT 173 x10e3/uL (140-360); RED BLOOD COUNT 2.94 x10e6/uL (4.3-5.7); RED CELL DISTRIBUTION WIDTH 13.8 % (11.7-14.4)
[2022-04-05 06:23] LABS: ANION GAP 11.6 mmol/L (8-16); CALCIUM 8.1 mg/dL (8.4-10.2); CREATININE, SERUM 0.75 mg/dL (0.72-1.25); POTASSIUM 3.6 mmol/L (3.5-5.1)
[2022-04-05] MEDS: INSULIN LISPRO 100 UNIT/1 ML 3ML VIAL SQ SCH ×3 (07:30→16:30)
[2022-04-05 07:41] VITALS: BP 158/72
[2022-04-05 08:55] VITALS: BP 158/72
[2022-04-05] MEDS: [UNRECOGNIZED DRUG - OTHER] PO SCH (09:00)
[2022-04-05] MEDS: ACETYLCYSTEINE 20% INHAL SOLN 30 ML VIAL PO SCH (09:16)
[2022-04-05] MEDS: ASPIRIN 81 MG CHEW TAB PO SCH (09:19)
[2022-04-05] MEDS: ATORVASTATIN 40 MG TAB PO SCH (09:19)
[2022-04-05] MEDS: QUETIAPINE FUMARATE 25 MG TAB PO SCH ×2 (09:20→16:47)
[2022-04-05] MEDS: SERTRALINE HCL 100 MG TAB PO SCH (09:20)
[2022-04-05 11:05] VITALS: BP 140/58
[2022-04-05 16:01] VITALS: BP 137/47
== END 2022-04-05 20:45 | DRG 240 ==
LOC: ER 17:04 → ERHOLD 18:57 → OBSVTOIN 22:31 → MED/SURG2 23:56 → MED/SURG3 04-02 18:28
PROVIDERS: ADMIT Internal Medicine; ATTEND Internal Medicine
PROC: 047D341 Dilation of Left Common Iliac Artery with Drug-eluting Intraluminal Device, using Drug-Coated Balloon, Percutaneous Approach (ICD-10-PCS; principal; 2022-03-27)
PROC: B4101ZZ Fluoroscopy of Abdominal Aorta using Low Osmolar Contrast (ICD-10-PCS; 2022-03-27)
PROC: B41F1ZZ Fluoroscopy of Right Lower Extremity Arteries using Low Osmolar Contrast (ICD-10-PCS; 2022-03-27)
PROC: 30233N1 Transfusion of Nonautologous Red Blood Cells into Peripheral Vein, Percutaneous Approach (ICD-10-PCS; 2022-03-29)
PROC: 0Y6H0Z1 Detachment at Right Lower Leg, High, Open Approach (ICD-10-PCS; 2022-04-03)
DX: E11.52 Type 2 diabetes mellitus with diabetic peripheral angiopathy with gangrene (principal); E87.2 Acidosis; L03.115 Cellulitis of right lower limb; L97.419 Non-pressure chronic ulcer of right heel and midfoot with unspecified severity; N17.9 Acute kidney failure, unspecified; I70.92 Chronic total occlusion of artery of the extremities; I70.7 Atherosclerosis of other type of bypass graft(s) of the extremities; I96 Gangrene, not elsewhere classified; I70.76 Atherosclerosis of other type of bypass graft(s) of the extremities with gangrene; E11.621 Type 2 diabetes mellitus with foot ulcer; E11.22 Type 2 diabetes mellitus with diabetic chronic kidney disease; E11.628 Type 2 diabetes mellitus with other skin complications; I70.221 Atherosclerosis of native arteries of extremities with rest pain, right leg; I12.9 Hypertensive chronic kidney disease with stage 1 through stage 4 chronic kidney disease, or unspecified chronic kidney disease; N18.9 Chronic kidney disease, unspecified; D64.9 Anemia, unspecified; E87.5 Hyperkalemia; I70.234 Atherosclerosis of native arteries of right leg with ulceration of heel and midfoot; Z89.512 Acquired absence of left leg below knee; Z95.820 Peripheral vascular angioplasty status with implants and grafts; Z72.89 Other problems related to lifestyle; F12.10 Cannabis abuse, uncomplicated; E78.5 Hyperlipidemia, unspecified; F43.10 Post-traumatic stress disorder, unspecified; F32.A Depression, unspecified; F41.9 Anxiety disorder, unspecified
CPT/HCPCS: 0223U; 36247; 36415; 37220; 37221; 74174; 75625; 75710; 76937; 80048; 80053; 80061; 80202; 82607; 82746; 82948; 83036; 83540; 83605; 83970; 84443; 84466; 85025; 85610; 85730; 86850; 86900; 86920; 87040; 88304; 88307; 88311; 93005; 93306; 93925; 94799; 99152; 99153; 99251; 99284; C1725; C1766; C1769; C1876; C1894; J1100; J1644; J1650; J1817; J1940; J2001; J2250; J2405; J2543; J3010; J3370; J3486; J7030; J7050; J7070; J7799; P9016; Q9967